=== PATIENT | male | born 1950 | race Hispanic/Latino ===

== ENCOUNTER 2017-04-12 14:22 | Emergency (ER) | payer OTHER ==
[~2017-04-12] VITALS: Ht 160 cm; Wt 86.2 kg
[2017-04-12 15:00] LABS: ABSOLUTE BASOPHIL COUNT 0.1 /CUMM (0.0-0.2); ABSOLUTE EOSINOPHIL COUNT 0 /CUMM (0.0-0.7); ABSOLUTE GRANULOCYTE CT 4.2 /CUMM (1.4-6.5); ABSOLUTE LYMPH COUNT 3.9 /CUMM (1.2-3.4); ABSOLUTE MONOCYTE COUNT 0.5 /CUMM (0.10-0.60); BASOPHIL % 0.8 % (0.0-2.0); EOSINOPHIL % 0.3 % (0-5); GRANULOCYTE % 48.8 % (42.2-75.2); HEMATOCRIT 50.8 % (42-52); MEAN CORPUSCULAR HGB 30.1 PG (27.0-31.0); MEAN CORPUSCULAR HGB CONC 34.7 G/DL (33.0-37.0); MEAN CORPUSCULAR VOLUME 86.9 FL (80.0-94.0); MEAN PLATELET VOLUME 8.1 FL (7.4-10.4); PLATELET COUNT 282 /CUMM (130-400); RBC DISTRIBUTION WIDTH 13.2 % (11.5-14.5); RED BLOOD CELL CT 5.85 /CUMM (4.70-6.10); WHITE BLOOD CELL COUNT 8.7 /CUMM (4.8-10.8)
--- NOTE | 2017-04-12 16:45 | ED GI/GU/ABDOMINAL COMPLAINT ---
History of Present Illness General Chief Complaint: Nausea, Vomiting, Diarrhea Stated Complaint: REQUESTING ETOH DETOX, [place] SPEAKING Source: patient, family Exam Limitations: no limitations Vital Signs & Intake/Output Vital Signs & Intake/Output Vital Signs Date Time Temp Pulse Resp B/P B/P Pulse O2 O2 Flow FiO2 Mean Ox Delivery Rate 04/12 2055 99.2 73 16 148/72 04/12 2054 99.2 73 16 148/72 95 Room Air 04/12 1856 96.9 88 15 152/76 04/12 1856 96.9 88 15 152/76 100 Room Air 04/12 1650 97.6 88 20 152/77 04/12 1650 100 04/12 1636 88 20 152/77 100 04/12 1428 97.6 93 18 161/93 96 Room Air ED Intake and Output 04/13 0000 04/12 1200 Intake Total 2000 Output Total 80 Balance 1920 Intake, IV 2000 Output, Urine 80 Patient 190 lb Weight Weight Estimated Measurement Method Allergies Coded Allergies: No Known Allergies (04/12/17) Triage Note: PT TO ER C/C N/V X 15 DAYS, ALSO REQUESTING TO DETOX FROM ALCOHOL. DRINKS "TOO MUCH TEQUILA" DAILY. LAST DRINK TODAY. DENIES DRUG USE. Triage Nurses Notes Reviewed? yes HPI: 66 yo M PMH EtOH abuse presenting with N/V/D, alcohol abuse requesting detox. Patient endorses nausea for the last 10-12 days with 5+ episodes of daily nonbloody nonbilious emesis, associated diarrhea with loose watery nonbloody stools. Associated mild intermittent right upper quadrant pain. Patient endorses ongoing alcohol abuse and dependence, drinks a half liter of tequila daily, endorses history of withdrawal syndromes with tremors and seizures with alcohol cessation. Requesting detox "I cant drink like this anymore". Denies fevers, chills, chest pain, shortness of breath, palpitations, urinary symptoms, headache, neck pain, or focal neurologic symptoms. Falls, trauma, or pain. (Adri KEENE,Rene) Reconcile Medications LORazepam (Ativan) 1 MG TAB 1-2 TAB PO BID PRN alcohol withdrawl sixteen... [id number] Ondansetron (Zofran Odt) 4 MG TAB.RAPDIS 1 TAB SL TID PRN nausea (Maria R KEENE,Ernie Degroot) Past History Travel History Traveled to [place] past 21 day No Medical History Any Pertinent Medical History? none Surgical History Surgical History: none Psychosocial History What is your primary language Sinhala Tobacco Use: Never used Family History Hx Contributory? No (Rene Rush MD) Review of Systems Review of Systems Constitutional: Reports: no symptoms. EENTM: Reports: no symptoms. Respiratory: Reports: no symptoms. Cardiovascular: Reports: no symptoms. GI: Reports: abdominal pain, diarrhea, nausea, vomiting. Genitourinary: Reports: no symptoms. Musculoskeletal: Reports: no symptoms. Skin: Reports: no symptoms. Neurological/Psychological: Reports: no symptoms. Hematologic/Endocrine: Reports: no symptoms. Immunologic/Allergic: Reports: no symptoms. All Other Systems: Reviewed and Negative (Adri KEENE,Rene) Physical Exam Physical Exam General Appearance: well developed/nourished, no apparent distress, alert, awake Head: atraumatic Eyes: Bilateral: PERRL, EOMI. Neck: normal inspection, no midline tenderness Respiratory: normal breath sounds, chest non-tender, no respiratory distress Gastrointestinal: normal bowel sounds, soft, tenderness Extremities: normal range of motion Comments: Abdomen: Soft, nondistended, mild right upper quadrant tenderness to palpation with negative Maldonado sign and no rebound or guarding Core Measures ACS in differential dx? No Sepsis Present: No Sepsis Focused Exam Completed? No (Adri KEENE,Rene) Progress Differential Diagnosis: AAA, AMI, appendicitis, biliary colic, bowel obstruction , colon cancer, cholecystitis, diverticulitis, epididymitis, esophageal varices, gastritis, hepatitis, hernia, hemorrhoids, ischemic bowel, inflamm bowel dis, Carmen-Vanesa tear, orchitis, pancreatitis, prostatitis, peptic ulcer, PUD/GERD, perforated viscous, pyelonephritis, SBO, STD, testicular torsion, ureterolithiasis, urinary retention, urethritis, UTI/pyelo Plan of Care: Orders Procedure Date/time Status Pathway - chart 04/12 1642 Active CIWA 04/12 1642 Active Add-on Test (ER Only) 04/12 1626 Active Add-on Test (ER Only) 04/12 1617 Active URINALYSIS 04/12 1611 Complete URINE DRUG SCREEN FOR ER ONLY 04/12 1432 Complete ETHANOL 04/12 1432 Complete COMPREHENSIVE METABOLIC PANEL 04/12 1432 Complete CBC WITHOUT DIFFERENTIAL 04/12 1432 Complete LIPASE 04/12 1345 Complete Laboratory Tests 04/12/17 1615: Lipase Cancelled, Urine Color Cancelled, Urine Clarity Cancelled, Urine pH Cancelled, Ur Specific [place] Cancelled, Urine Protein Cancelled, Urine Ketones Cancelled, Urine Nitrite Cancelled, Urine Bilirubin Cancelled, Urine Urobilinogen Cancelled, Ur Leukocyte Esterase Cancelled, Ur Microscopic Cancelled, Urine Hemoglobin Cancelled, Urine Glucose Cancelled 04/12/17 1611: Urine Opiates Screen < 100.00, Methadone Screen < 40, Barbiturate Screen < 60, Ur Phencyclidine Scrn < 6.00, Amphetamines Screen < 100, U Benzodiazepines Scrn < 85, Urine Cocaine Screen < 50, Urine Cannabis Screen < 5.00, Urine Color YEL, Urine Clarity CLEAR, Urine pH 6.5, Ur Specific [place] 1.020, Urine Protein 100 H, Urine Ketones NEG, Urine Nitrite NEG, Urine Bilirubin NEG, Urine Urobilinogen 0.2, Ur Leukocyte Esterase NEG, Ur Microscopic SEDIMENT EXAMINED, Urine RBC 10- 15 H, Ur Epithelial Cells RARE, Urine Mucus RARE, Urine Hemoglobin MOD H, Urine Glucose NEG 04/12/17 1345: Anion Gap 17 H, Estimated GFR > 60, BUN/Creatinine Ratio 14.3, Glucose 150 H, Calcium 8.3 L, Total Bilirubin 0.8, AST 70 H, ALT 74 H, Alkaline Phosphatase 110, Total Protein 7.6, Albumin 4.2, Globulin 3.4, Albumin/Globulin Ratio 1.2, Lipase 29, CBC w Diff NO MAN DIFF REQ, RBC 5.85, MCV 86.9, MCH 30.1, RDW 13.2, MPV 8.1, Gran % 48.8, Lymphocytes % 44.9, Monocytes % 5.2, Eosinophils % 0.3, Basophils % 0.8, Absolute Granulocytes 4.2, Absolute Lymphocytes 3.9 H, Absolute Monocytes 0.5, Absolute Eosinophils 0, Absolute Basophils 0.1, PUBS MCHC 34.7, Serum Alcohol 299.0 Physician MDM: 66 yo M PMH EtOH abuse presenting with N/V/D, alcohol abuse requesting detox. VSS, exam as above. DDx: Viral gastroenteritis, bacterial gastroenteritis, alcoholic gastritis, alcoholic hepatitis, alcoholic pancreatitis, biliary pathology, colitis, low concern for esophageal catastrophe , ACS, aortic pathology. EKG sinus rhythm, nonischemic. CMP with mild AST and ALT elevations. Lipase normal. CBC unremarkable. Alcohol level [id number], CIWA order set with PRN ativan penbding withdrawal Sx. Urinalysis with 10-15 rbc's/ hpf,? Nephrolithiasis given right flank pain on the CT abdomen and pelvis ordered. Signed out, dispo pending imaging and severity of withdrawal symptoms onceEtOH level drops. Initial ED EKG: NSR (Rene Rush MD) Comments: 04/12/2017 11:33:37 PM patient signed out to me by Dr. Rush. Patient signed out to Dr. Heck. (Kathe KEENE,Amando Delgadillo) Departure Departure Disposition: STILL A PATIENT Condition: Stable Referrals: Petey Corbett MD (PCP/Family) Departure Forms: Customer Survey General Discharge Information (Rene Rush MD) Departure Clinical Impression Primary Impression: Alcohol abuse Secondary Impressions: Alcoholism, Nausea and vomiting Prescriptions: Current Visit Scripts Ondansetron (Zofran Odt) 1 TAB SL TID PRN nausea #10 TAB LORazepam (Ativan) 1-2 TAB PO BID PRN alcohol withdrawl #16 TAB Ref 1 sixteen... [id number] Comments 04/13/17, 0:45... pt is awake and alert, comfortable, and has been in ED for more than 10 hours without problem. He has tolerated oral. CIWA score 3, breathlyized .111. He meets criteria, per our protocol, for outpatient detox. He has never had seizures. He reports that when he stops drinking he feels well. He wishes to go home and has family who can pick him up. I discussed with him at length, in kittitian, the plan to take ativan and/or zofran as needed if he develops withdrawal symptoms. I have also referred him to outpatient detox. (Maria R KEENE,Ernie Degroot) Petey Corbett MD (PCP/Family) Departure Forms: Customer Survey General Discharge Information (Rene Rush MD) Departure Clinical Impression Primary Impression: Alcohol abuse Secondary Impressions: Alcoholism, Nausea and vomiting Prescriptions: Current Visit Scripts Ondansetron (Zofran Odt) 1 TAB SL TID PRN nausea #10 TAB LORazepam (Ativan) 1-2 TAB PO BID PRN alcohol withdrawl #16 TAB Ref 1 sixteen... [id number] Comments 04/13/17, 0:45... pt is awake and alert, comfortable. He has tolerated oral. CIWA score 3, breathlyized .111. He meets criteria, per our protocol, for outpatient detox. He has never had seizures. He reports that when he stops drinking he feels well. He wishes to go home and has family who can pick him up. I discussed with him at length, in kittitian, the plan to take ativan and/or zofran as needed if he develops withdrawal symptoms. I have also referred him to outpatient detox. (Maria R KEENE,Ernie Degroot)
--- NOTE | 2017-04-12 20:33 | CT SCAN REPORT ---
EXAMINATION: CT ABDOMEN AND PELVIS WITH CONTRAST CLINICAL INFORMATION: Right flank pain. Nephrolithiasis, hepatitis. COMPARISON: None TECHNIQUE: Multidetector volumetric imaging was performed of the abdomen and pelvis following IV administration of 95 mL of Optiray 320 intravenous contrast. Sagittal and coronal reformatted images were obtained on the technologist's workstation. DLP: 646 mGy-cm FINDINGS: LUNG BASES: There is linear atelectasis vs. scar in the right greater than left lower lobes. No pleural or pericardial effusion. LIVER, GALLBLADDER, AND BILIARY TREE: There is a 3 mm calcification laterally in the right lobe of the liver. Liver is diffusely hypoattenuating. Diffuse hepatic steatosis can give this appearance. The hepatic and portal veins enhance normally. The gallbladder is unremarkable with no evidence of radiopaque gallstones, gallbladder wall thickening, or obvious pericholecystic inflammatory changes. PANCREAS: Diffuse pancreatic atrophy. SPLEEN: Unremarkable. ADRENAL GLANDS: Unremarkable. KIDNEYS AND URETERS: 9 mm simple cyst of the anterior cortex of the upper pole the left kidney. Kidneys are otherwise normal in size, shape, and attenuation. No hydronephrosis, hydroureter, or calculi seen. No perinephric stranding. BLADDER: Unremarkable. GASTROINTESTINAL TRACT: Stomach is collapsed. Small bowel is nondilated. Normal appendix. There are short segments of wall thickening and luminal narrowing of the hepatic flexure and mid transverse colon. The left colon is collapsed with wall thickening likely due to underdistention. No pericolonic fluid or fat stranding seen. ABDOMINAL WALL: Tiny fat-containing umbilical hernia. There is fat within the right inguinal canal. LYMPH NODES: Normal. VASCULAR: Normal caliber abdominal aorta. PELVIC VISCERA: The prostate and seminal vesicles are unremarkable. OSSEOUS STRUCTURES: Multilevel degenerative changes of the thoracolumbar spine are seen. IMPRESSION: No definite CT abnormality to explain the patient's right flank pain. There are several segments of colon which are narrow/collapsed with wall thickening. Most likely, this is simply due to peristalsis and the wall thickening is due to underdistention, but a subtle colitis is possible as well. Recommend clinical correlation. Consider colonoscopy as clinically indicated. Possible hepatic steatosis.
[2017-04-12 20:56] VITALS: BP 148/72
[2017-04-13] MEDS ORDERED: ATIVAN1 M1 PO (00:43)
[2017-04-13] MEDS ORDERED: ZOFRAN ODT4 M1 SL (00:43)
== END 2017-04-13 01:03 ==
LOC: ERH 14:22
PROVIDERS: Emergency Medicine
DX: F10.20 Alcohol dependence, uncomplicated (principal); R11.2 Nausea with vomiting, unspecified
CPT/HCPCS: 74177; 80307; 81001; 96374; G0480; J2405; J3101; J3490